=== PATIENT | male | born 1995 | race Caucasian/White ===

== ENCOUNTER 2017-10-12 04:38 | Emergency (ER) | payer OTHER ==
[2017-10-12] MEDS ORDERED: NORMAL SALINE 1000 ML 1,000 ML IV ONE ×3 (05:12→06:15)
--- NOTE | 2017-10-12 05:13 | ER Document Report ---
ED General <MARGARITO KNUTSON - Last Filed: 10/12/17 07:44> - General TRAVEL OUTSIDE OF THE [place] IN LAST 30 DAYS: No <ANTONINO ESPOSITO - Last Filed: 10/12/17 08:39> <TAMI GRIER - Last Filed: 10/12/17 15:08> - General Chief Complaint: High Blood Sugar Stated Complaint: VOMITING/BLOOD SUGAR ISSUES Time Seen by Provider: 10/12/17 05:07 Notes: Patient is a 22-year-old male type I diabetic that comes emergency department for chief complaint of persistent vomiting for the past 10 hours. Patient has an insulin pump, he states he thought it was working, they did recently change location yesterday to his left thigh. He initially thought he got food poisoning from lunch yesterday but he has had no diarrhea, no fever, no other reported symptoms other than vomiting. Blood sugar reading high initially. No hemoptysis. Smokes and drinks socially. No recreational drugs. Only other reported past medical history is hypertension, takes lisinopril. (ANTONINO ESPOSITO) - Related Data Allergies/Adverse Reactions: penicillin V [Penicillin V] Allergy (Verified 04/14/12 09:17) Past Medical History - General Information source: Patient, Relative - father - Social History Smoking Status: Current Some Day Smoker Frequency of alcohol use: Occasional Drug Abuse: None Lives with: Family Family History: Reviewed & Not Pertinent - Past Medical History Cardiac Medical History: Reports: Hx Hypertension Endocrine Medical History: Reports: Hx Diabetes Mellitus Type 1 Past Surgical History: Reports: Hx Testicular Surgery - Immunizations Hx Diphtheria, Pertussis, Tetanus Vaccination: Yes <ANTONINO ESPOSITO - Last Filed: 10/12/17 08:39> Review of Systems - Review of Systems Constitutional: See HPI EENT: No symptoms reported Cardiovascular: No symptoms reported Respiratory: No symptoms reported Gastrointestinal: See HPI Genitourinary: No symptoms reported Male Genitourinary: No symptoms reported Musculoskeletal: No symptoms reported Skin: No symptoms reported Hematologic/Lymphatic: No symptoms reported Neurological/Psychological: No symptoms reported <ANTONINO ESPOSITO - Last Filed: 10/12/17 08:39> Physical Exam <MARGARITO KNUTSON - Last Filed: 10/12/17 07:44> <ANTONINO ESPOSIOT - Last Filed: 10/12/17 08:39> <TAMI GRIER - Last Filed: 10/12/17 15:08> - Vital signs Vitals: Temp Pulse Resp BP Pulse Ox 97.4 F 133 H 30 H 127/71 H 100 10/12/17 04:45 10/12/17 04:45 10/12/17 04:45 10/12/17 04:45 10/12/17 04:45 - Notes Notes: GENERAL: Lethargic, pale HEAD: Normocephalic, atraumatic. EYES: Pupils equal, round, and reactive to light. Extraocular movements intact. ENT: Oral mucosa parched with parched tongue NECK: Full range of motion. Supple. Trachea midline. LUNGS: Tachypnea but clear to auscultation. HEART: Tachycardia with no murmur. ABDOMEN: Soft, non-tender. Non-distended. Bowel sounds present in all 4 quadrants. EXTREMITIES: Moves all 4 extremities spontaneously. No edema, normal radial and dorsalis pedis pulses bilaterally. No cyanosis. BACK: no cervical, thoracic, lumbar midline tenderness. No saddle anesthesia, normal distal neurovascular exam. NEUROLOGICAL: Alert and oriented x3. Normal speech. [cranial nerves II through XII grossly intact]. SKIN: Pale. (ANTONINO ESPOSITO) Course - Laboratory Result Diagrams: 10/12/17 05:10 10/12/17 06:45 <MARGARITO KNUTSON - Last Filed: 10/12/17 07:44> - Laboratory Result Diagrams: 10/12/17 05:10 10/12/17 06:45 <ANTONINO ESPOSITO - Last Filed: 10/12/17 08:39> - Laboratory Result Diagrams: 10/12/17 13:08 10/12/17 13:53 <TAMI GRIER - Last Filed: 10/12/17 15:08> - Re-evaluation Re-evalutation: 10/12/17 06:54 Patient was initially seen by the physician assistant oceanographer, Antonino Esposito. He told the patient appeared to be in DKA and clinically does not look well. I did evaluate the patient and looked at the initial EKG which showed signs concerning for hyperkalemia. I therefore ordered calcium gluconate which was given. His QRS has widened. Patient's blood sugar did come back at over 900 and his potassium was 8.5. Patient has been given 2 A of bicarb and start a bicarb drip. Also given insulin bolus of 10 units due to the severe hyperkalemia and is started on insulin drip for CK. Patient received 3 L of IV fluids at this time will be tapped on the bicarb drip. We are rechecking a second chemistry panel now. Patient does have a large leukocytosis. We spoke with the lab and there is no evidence of blast crisis or blast cells. We called our php architect and I have not spoke with Dr. Odonnell request patient be transferred. She said that the white blood cell count is too high for her to be able to manage here and therefore she requested transfer. Patient is somnolent but awake and oriented. His blood pressure is normal is not tachycardic currently. Once we get a repeat chemistry panel pack we will call for transfer. 10/12/17 07:15 Repeat EKG shows normalization of the patient's QRS duration and his peak T waves have improved significantly. 10/12/17 07:44 Patient's potassium is downtrending. QRS is remaining marrow. Patient is clinically looking much much improved. He is now fully awake and alert and is answering questions appropriately and is much more interactive on exam. I did inform the patient and his mother that her condition from our specialist is to transfer. Patient is followed by an medical billing coordinator in [facility] and therefore will call them first. We will keep a close on the patient's blood sugar. Patient's blood sugar gets down to around [address] him on D5 half-normal maintenance IV fluids. (MARGARITO KNUTSON) On initial evaluation patient is tachycardic, pale, has kussmaul respirations, he is lying panting with his eyes closed but he still responds appropriately, is oriented, does not have altered mental status. Suspect patient has severe DKA. 2 large peripheral IVs were started immediately, giving patient 2 L saline fluid bolus, will start preparing insulin drip. Patient will be closely reevaluated. Patient reevaluated, tachycardia improving, patient's coloration improving although he is not otherwise changed. 10/12/17 05:32 EKG showing sinus tachycardia at a rate of 111, very peaked T waves, QT prolongation. Very concerning for severe hyperkalemia. Dr. Knutson already placed calcium gluconate order, insulin drip is being hung. Labs still pending. 10/12/17 05:54 PH 6.9, severe metabolic acidosis. Giving amp of bicarbonate and starting bicarbonate drip. Patient is still oriented and responsive although still very ill appearing. 10/12/17 06:15 Potassium of 8.5, which she was creatinine of 2.95, anion gap not recordable, glucose 916. Discussed with Dr. Knutson, recommends 10 unit IV insulin bolus and a second amp of bicarbonate. Giving patient his third fluid bolus. Dr. Knutson has evaluated the patient at bedside. 10/12/17 06:[address] Odonnell, hematology environmental engineering manager, she states she is uncomfortable with patient being managed at this facility because of his extremely high white blood cell count and possible underlying pathology possibilities. She recommends transfer. Discussed results with mother, patient reevaluated bedside, he does appear slightly improved from prior, monitoring shows significant improvement of QT interval. EKG repeated and shows significant improvement with resolution of QT prolongation. Spoke with Dr. Osorio, hospitalist at [facility], he accepts patient for transfer, request the patient have an immediate BMP redrawn now along with a repeat CBC and that he be called with the results of the potassium when this has resulted again. Introduced to Dr. Grier at bedside. Dr. Grier will be calling back with the potassium result pending management at that time. I answered all family's questions at this time. They state agreement with transfer and plan. Patient is very much improved at this time, sitting up, talkative, his color is improved , his tachycardia has resolved. (ATNONINO ESPOSITO) 10/12/17 15:08 Patient's mental status improved as well as electrolytes while in the emergency department. Patient was transferred to outside hospital for higher level of care. I met with patient prior to discharge stable for transfer at this time ( CHERRIE,TAMI Quinones) - Vital Signs Vital signs: Temp Pulse Resp BP Pulse Ox 98.1 F 133 H 18 120/73 99 10/12/17 15:04 10/12/17 04:45 10/12/17 14:45 10/12/17 14:31 10/12/17 14:45 - Laboratory Laboratory results interpreted by me: 10/12/17 10/12/17 10/12/17 05:10 05:10 05:10 WBC 62.1 H* Hct 52.9 H MCV 98 H MCHC 31.1 L Plt Count 527 H Seg Neuts % (Manual) 82 H Band Neutrophils % Lymphocytes % (Manual) 4 L Metamyelocytes % 1 H Myelocytes % 2 H Abs Neuts (Manual) 55.9 H Abs Lymphs (Manual) Abs Monocytes (Manual) 3.7 H VBG pH 6.90 L* VBG pCO2 20.4 L VBG HCO3 3.9 L Sodium 132.4 L Potassium 8.5 H* Chloride 88 L Carbon Dioxide < 5 L* Anion Gap BUN 30 H Creatinine 2.95 H Est GFR ( Amer) 32 L Est GFR (Non-Af Amer) 26 L Glucose 916 H* POC Glucose Calcium Magnesium Total Bilirubin Direct Bilirubin 0.7 H Total Protein 8.5 H Albumin 5.8 H Free T3 pg/mL Urine Protein Urine Glucose (UA) Urine Ketones Urine Blood 10/12/17 10/12/17 10/12/17 05:10 06:45 06:45 WBC Hct MCV MCHC Plt Count Seg Neuts % (Manual) Band Neutrophils % Lymphocytes % (Manual) Metamyelocytes % Myelocytes % Abs Neuts (Manual) Abs Lymphs (Manual) Abs Monocytes (Manual) VBG pH VBG pCO2 VBG HCO3 Sodium 133.6 L Potassium 7.6 H* Chloride 97 L Carbon Dioxide 7 L* Anion Gap 30 H BUN 33 H Creatinine 2.37 H Est GFR ( Amer) 41 L Est GFR (Non-Af Amer) 34 L Glucose 746 H* POC Glucose > 550 H* Calcium 8.3 L Magnesium Total Bilirubin Direct Bilirubin Total Protein Albumin Free T3 pg/mL 2.76 L Urine Protein Urine Glucose (UA) Urine Ketones Urine Blood 10/12/17 10/12/17 10/12/17 07:25 08:02 08:15 WBC Hct MCV MCHC Plt Count Seg Neuts % (Manual) Band Neutrophils % Lymphocytes % (Manual) Metamyelocytes % Myelocytes % Abs Neuts (Manual) Abs Lymphs (Manual) Abs Monocytes (Manual) VBG pH VBG pCO2 VBG HCO3 Sodium 136.3 L Potassium Chloride Carbon Dioxide 10 L* Anion Gap 26 H BUN 33 H Creatinine 2.17 H Est GFR ( Amer) 45 L Est GFR (Non-Af Amer) 38 L Glucose 634 H* POC Glucose > 550 H* Calcium Magnesium Total Bilirubin Direct Bilirubin Total Protein Albumin Free T3 pg/mL Urine Protein 100 H Urine Glucose (UA) >=500 H Urine Ketones 80 H Urine Blood MODERATE H 10/12/17 10/12/17 10/12/17 08:15 08:15 09:40 WBC 51.8 H* Hct MCV MCHC Plt Count Seg Neuts % (Manual) Band Neutrophils % 2 L Lymphocytes % (Manual) 12 L Metamyelocytes % Myelocytes % 1 H Abs Neuts (Manual) 41.4 H Abs Lymphs (Manual) 6.7 H Abs Monocytes (Manual) 3.6 H VBG pH VBG pCO2 VBG HCO3 Sodium Potassium Chloride Carbon Dioxide Anion Gap BUN Creatinine Est GFR ( Amer) Est GFR (Non-Af Amer) Glucose POC Glucose > 550 H* Calcium Magnesium 2.4 H Total Bilirubin Direct Bilirubin Total Protein Albumin Free T3 pg/mL Urine Protein Urine Glucose (UA) Urine Ketones Urine Blood 10/12/17 10/12/17 10/12/17 11:10 13:07 13:08 WBC 42.5 H* Hct MCV MCHC Plt Count Seg Neuts % (Manual) Band Neutrophils % 6 H Lymphocytes % (Manual) 6 L Metamyelocytes % 2 H Myelocytes % Abs Neuts (Manual) 36.6 H Abs Lymphs (Manual) Abs Monocytes (Manual) 3.4 H VBG pH VBG pCO2 VBG HCO3 Sodium Potassium Chloride Carbon Dioxide Anion Gap BUN Creatinine Est GFR ( Amer) Est GFR (Non-Af Amer) Glucose POC Glucose 465 H* 360 H Calcium Magnesium Total Bilirubin Direct Bilirubin Total Protein Albumin Free T3 pg/mL Urine Protein Urine Glucose (UA) Urine Ketones Urine Blood 10/12/17 13:53 WBC Hct MCV MCHC Plt Count Seg Neuts % (Manual) Band Neutrophils % Lymphocytes % (Manual) Metamyelocytes % Myelocytes % Abs Neuts (Manual) Abs Lymphs (Manual) Abs Monocytes (Manual) VBG pH VBG pCO2 VBG HCO3 Sodium Potassium Chloride Carbon Dioxide 20 L D Anion Gap BUN 30 H Creatinine 1.39 H Est GFR ( Amer) Est GFR (Non-Af Amer) Glucose 339 H POC Glucose Calcium Magnesium Total Bilirubin 1.4 H Direct Bilirubin 0.5 H Total Protein Albumin Free T3 pg/mL Urine Protein Urine Glucose (UA) Urine Ketones Urine Blood Critical Care Note <MARGARITO KNUTSON - Last Filed: 10/12/17 07:44> - Critical Care Note Total time excluding time spent on procedures (mins): 60 - DKA, hyperkalemia, acute renal failure <ANTONINO ESPOSITO - Last Filed: 10/12/17 08:39> <TAMI GRIER - Last Filed: 10/12/17 15:08> - Critical Care Note Comments: Please allow 60 minutes of critical care time for evaluation, management, transfer patient with severe diabetic ketoacidosis, acute renal failure, hyperkalemia, marked leukocytosis. Interventions for severe hyperkalemia with EKG changes, metabolic acidosis, and hyperglycemia. Multiple re-evaluations and extended time spent both at bedside and in discussion with family along with discussion with hematology and tertiary care. (ANTONINO ESPOSITO) Discharge <MARGARITO KNUTSON - Last Filed: 10/12/17 07:44> <ANTONINO ESPOSITO - Last Filed: 10/12/17 08:39> <TAMI GRIER - Last Filed: 10/12/17 15:08> - Discharge Clinical Impression: Hyperkalemia DKA (diabetic ketoacidoses) Qualifiers: Diabetes mellitus type: type 1 Diabetes mellitus complication detail: without coma Qualified Code(s): E10.10 - Type 1 diabetes mellitus with ketoacidosis without coma Acute renal failure Qualifiers: Acute renal failure type: unspecified Qualified Code(s): N17.9 - Acute kidney failure, unspecified Leukocytosis Qualifiers: Leukocytosis type: unspecified Qualified Code(s): D72.829 - Elevated white blood cell count, unspecified Condition: Serious Disposition: [facility] Referrals: JACE JIANG MD [NO LOCAL MD] - Follow up as needed
[2017-10-12] MEDS ORDERED: INSULIN REG, HUMAN 100 UNIT/ML 3 ML VIAL (PYX) ONE ×2 (05:20→05:38)
[2017-10-12] MEDS ORDERED: CALCIUM GLUCONATE 1000 MG/10 ML INJ IV ONE ×2 (05:26→05:28)
[2017-10-12] MEDS ORDERED: NORMAL SALINE 100 ML with INSULIN REGULAR, HUMAN 100 UNIT IV PRN ×4 (05:27→05:30)
[2017-10-12 05:31] LABS: VENOUS BLOOD BASE EXCESS -28.3 mmol/L; VENOUS BLOOD HCO3 3.9 mmol/L (20-32); VENOUS BLOOD PCO2 20.4 mmHg (35-63)
[2017-10-12 05:36] LABS: VENOUS BLOOD PH 6.9 (7.30-7.42)
[2017-10-12 05:37] LABS: HEMATOCRIT 52.9 % (37.9-51.0); HEMOGLOBIN 16.4 g/dL (13.5-17.0); MEAN CORPUSCULAR HEMOGLOBIN 30.5 pg (27.0-33.4); MEAN CORPUSCULAR HGB CONC 31.1 g/dL (32.0-36.0); MEAN CORPUSCULAR VOLUME 98 fl (80-97); PLATELET COUNT 527 10^3/uL (150-450); RED BLOOD COUNT 5.38 10^6/uL (4.35-5.55)
[2017-10-12] MEDS ORDERED: SODIUM BICARBONATE 8.4% INJ 50 MEQ/50 ML DISP.SYRIN IV ONE ×2 (05:38→06:07)
[2017-10-12] MEDS ORDERED: SODIUM BICARBONATE 8.4% INJ 50 MEQ/50 ML DISP.SYRIN ONE (05:39)
--- NOTE | 2017-10-12 05:45 | RADIOLOGY REPORT (SQ) ---
EXAM DESCRIPTION: XR CHEST 1 VIEW COMPLETED DATE/TME: 10/12/2017 05:11 CLINICAL HISTORY: Persistent vomiting, retching COMPARISON: 04/14/2012 FINDINGS: Single frontal view of the chest. Leads overlie the chest. The cardiomediastinal silhouette has normal size and contour. No consolidation, pneumothorax, or pleural effusion. No displaced rib fractures identified. Upper abdominal soft tissues are unremarkable. IMPRESSION: 1. No acute pulmonary process identified.
[2017-10-12 05:46] LABS: ALANINE AMINOTRANSFERASE 36 U/L (21-72); ALBUMIN 5.8 g/dL (3.5-5.0); ALKALINE PHOSPHATASE 95 U/L (38-126); ASPARTATE AMINO TRANSFERASE 38 U/L (17-59); BILIRUBIN,DIRECT 0.7 mg/dL (0.0-0.4); BILIRUBIN,TOTAL 0.8 mg/dL (0.2-1.3); BLOOD UREA NITROGEN 30 mg/dL (7-20); CHLORIDE 88 mmol/L (98-107); LIPASE 52.2 U/L (23-300); SODIUM 132.4 mmol/L (137-145); TOTAL PROTEIN 8.5 g/dL (6.3-8.2)
[2017-10-12 06:03] LABS: CARBON DIOXIDE < 5 mmol/L (22-30); GLUCOSE 916 mg/dL (75-110); POTASSIUM 8.5 mmol/L (3.6-5.0)
[2017-10-12] MEDS: DEXTROSE 5%-WATER 1000 ML 1,000 ML with SODIUM BICARBONATE 150 MEQ IV PRN ×4 (06:05→13:29)
[2017-10-12] MEDS ORDERED: INSULIN REG, HUMAN 100 UNIT/ML 3 ML VIAL (PYX) IV ONE (06:07)
[2017-10-12 06:22] LABS: ABSOLUTE LYMPHOCYTES# (MANUAL) 2.5 10^3/uL (0.5-4.7); ABSOLUTE MONOCYTES # (MANUAL) 3.7 10^3/uL (0.1-1.4); ABSOLUTE NEUTROPHILS# (MANUAL) 55.9 10^3/uL (1.7-8.2); BAND NEUTROPHILS % (MANUAL) 5 % (3-5); BASOPHILS % (MANUAL) 0 % (0-2); EOSINOPHILS % (MANUAL) 0 % (0-6); LYMPHOCYTES % (MANUAL) 4 % (13-45); METAMYELOCYTES % (MANUAL) 1 % (0); MONOCYTES % (MANUAL) 6 % (3-13); MYELOCYTES % (MANUAL) 2 % (0); PLATELET COMMENT ADEQUATE; RBC MORPHOLOGY COMMENT NORMO-CYTIC/CHROMIC; SEGMENTED NEUTROPHILS % (MAN) 82 % (42-78); TOTAL CELLS COUNTED 100
[2017-10-12 06:23] LABS: WHITE BLOOD COUNT 62.1 10^3/uL (4.0-10.5)
[2017-10-12 07:18] LABS: BLOOD UREA NITROGEN 33 mg/dL (7-20); CALCIUM 8.3 mg/dL (8.4-10.2)
[2017-10-12 07:24] LABS: CHLORIDE 97 mmol/L (98-107); SODIUM 133.6 mmol/L (137-145)
[2017-10-12 07:27] LABS: ANION GAP 30 (5-19)
[2017-10-12 07:35] LABS: GLUCOSE 746 mg/dL (75-110); POTASSIUM 7.6 mmol/L (3.6-5.0)
[2017-10-12 07:36] LABS: CARBON DIOXIDE 7 mmol/L (22-30)
[2017-10-12 08:06] LABS: APPEARANCE,URINE SLIGHTLY-CLOUDY; BILIRUBIN,URINE NEGATIVE (NEGATIVE); COLOR,URINE YELLOW; GLUCOSE, URINE >=500 mg/dL (NEGATIVE); KETONES,URINE 80 mg/dL (NEGATIVE); LEUKOCYTE ESTERASE,URINE NEGATIVE (NEGATIVE); NITRITE,URINE NEGATIVE (NEGATIVE); PROTEIN,URINE 100 mg/dL (NEGATIVE); URINE SPECIFIC GRAVITY 1.017; UROBILINOGEN,URINE NEGATIVE mg/dL (<2.0)
[2017-10-12 08:43] LABS: HEMATOCRIT 44.2 % (37.9-51.0); HEMOGLOBIN 14.5 g/dL (13.5-17.0); MEAN CORPUSCULAR HEMOGLOBIN 30.5 pg (27.0-33.4); MEAN CORPUSCULAR HGB CONC 32.9 g/dL (32.0-36.0); PLATELET COUNT 360 10^3/uL (150-450); RED BLOOD COUNT 4.77 10^6/uL (4.35-5.55); RED CELL DISTRIBUTION WIDTH 12.3 % (11.5-14.0)
[2017-10-12 08:44] LABS: FREE T3 2.76 pg/mL (2.77-5.27); FREE T4 (FREE THYROXINE) 1.87 ng/dL (0.78-2.19)
[2017-10-12 08:58] LABS: THYROID STIMULATING HORMONE 2.54 uIU/mL (0.47-4.68)
[2017-10-12 09:01] LABS: BLOOD UREA NITROGEN 33 mg/dL (7-20); CALCIUM 8.6 mg/dL (8.4-10.2)
[2017-10-12 09:07] LABS: CHLORIDE 100 mmol/L (98-107); SODIUM 136.3 mmol/L (137-145)
[2017-10-12 09:14] LABS: WHITE BLOOD COUNT 51.8 10^3/uL (4.0-10.5)
[2017-10-12 09:15] LABS: MEAN CORPUSCULAR VOLUME 93 fl (80-97)
[2017-10-12 09:16] LABS: ABSOLUTE LYMPHOCYTES# (MANUAL) 6.7 10^3/uL (0.5-4.7); ABSOLUTE MONOCYTES # (MANUAL) 3.6 10^3/uL (0.1-1.4); ABSOLUTE NEUTROPHILS# (MANUAL) 41.4 10^3/uL (1.7-8.2); BAND NEUTROPHILS % (MANUAL) 2 % (3-5); BASOPHILS % (MANUAL) 0 % (0-2); EOSINOPHILS % (MANUAL) 0 % (0-6); LYMPHOCYTES % (MANUAL) 12 % (13-45); MONOCYTES % (MANUAL) 7 % (3-13); MYELOCYTES % (MANUAL) 1 % (0); SEGMENTED NEUTROPHILS % (MAN) 77 % (42-78); TOTAL CELLS COUNTED 100
[2017-10-12 09:17] LABS: PLATELET COMMENT ADEQUATE; POLYCHROMASIA SLIGHT; TOXIC GRANULATION SLIGHT
[2017-10-12 09:30] LABS: ANION GAP 26 (5-19); CARBON DIOXIDE 10 mmol/L (22-30); GLUCOSE 634 mg/dL (75-110)
[2017-10-12 12:02] LABS: PHOSPHORUS 3.9 mg/dL (2.5-4.5)
[2017-10-12 13:31] LABS: HEMATOCRIT 42.4 % (37.9-51.0); HEMOGLOBIN 14.8 g/dL (13.5-17.0); MEAN CORPUSCULAR HEMOGLOBIN 30.8 pg (27.0-33.4); MEAN CORPUSCULAR HGB CONC 34.9 g/dL (32.0-36.0); PLATELET COUNT 362 10^3/uL (150-450); RED BLOOD COUNT 4.79 10^6/uL (4.35-5.55); RED CELL DISTRIBUTION WIDTH 12.2 % (11.5-14.0)
[2017-10-12 13:35] LABS: MEAN CORPUSCULAR VOLUME 89 fl (80-97); WHITE BLOOD COUNT 42.5 10^3/uL (4.0-10.5)
[2017-10-12 13:58] LABS: ABSOLUTE LYMPHOCYTES# (MANUAL) 2.6 10^3/uL (0.5-4.7); ABSOLUTE MONOCYTES # (MANUAL) 3.4 10^3/uL (0.1-1.4); ABSOLUTE NEUTROPHILS# (MANUAL) 36.6 10^3/uL (1.7-8.2); BAND NEUTROPHILS % (MANUAL) 6 % (3-5); BASOPHILS % (MANUAL) 0 % (0-2); EOSINOPHILS % (MANUAL) 0 % (0-6); HYPOCHROMASIA SLIGHT; LYMPHOCYTES % (MANUAL) 6 % (13-45); METAMYELOCYTES % (MANUAL) 2 % (0); MONOCYTES % (MANUAL) 8 % (3-13); PLATELET COMMENT ADEQUATE; POLYCHROMASIA SLIGHT; SEGMENTED NEUTROPHILS % (MAN) 78 % (42-78); TOTAL CELLS COUNTED 100; TOXIC GRANULATION SLIGHT; TOXIC VACUOLATION PRESENT
[2017-10-12 14:10] LABS: PATH REVIEW PATHOLOGIST REVIEWED
[2017-10-12 14:28] LABS: ALANINE AMINOTRANSFERASE 33 U/L (21-72); ALBUMIN 4.6 g/dL (3.5-5.0); ALKALINE PHOSPHATASE 66 U/L (38-126); ANION GAP 19 (5-19); ASPARTATE AMINO TRANSFERASE 43 U/L (17-59); BILIRUBIN,DIRECT 0.5 mg/dL (0.0-0.4); BILIRUBIN,TOTAL 1.4 mg/dL (0.2-1.3); BLOOD UREA NITROGEN 30 mg/dL (7-20); CALCIUM 9.4 mg/dL (8.4-10.2); CHLORIDE 103 mmol/L (98-107); GLUCOSE 339 mg/dL (75-110); POTASSIUM 4.3 mmol/L (3.6-5.0); SODIUM 142.3 mmol/L (137-145); TOTAL PROTEIN 7.3 g/dL (6.3-8.2)
[2017-10-12 14:47] LABS: CARBON DIOXIDE 20 mmol/L (22-30)
[2017-10-12 15:05] VITALS: BP 120/73
--- NOTE | 2017-10-13 07:41 | EKG REPORT ---
SEVERITY:- ABNORMAL ECG - SINUS OR ECTOPIC ATRIAL TACHYCARDIA NONSPECIFIC IVCD WITH LAD : Confirmed by: Alejandra Segovia MD 13-Oct-2017 07:40:11
--- NOTE | 2017-10-13 07:41 | EKG REPORT ---
SEVERITY:- OTHERWISE NORMAL ECG - SINUS TACHYCARDIA : Confirmed by: Alejandra Segovia MD 13-Oct-2017 07:40:02
== END 2017-10-12 15:35 | disposition short-term general hospital (02) ==
LOC: ER 04:38
DX: E10.10 Type 1 diabetes mellitus with ketoacidosis without coma (principal); N17.9 Acute kidney failure, unspecified; D72.829 Elevated white blood cell count, unspecified; E87.5 Hyperkalemia; R11.10 Vomiting, unspecified; R53.83 Other fatigue; R23.1 Pallor; Z79.4 Long term (current) use of insulin; F17.200 Nicotine dependence, unspecified, uncomplicated; I10 Essential (primary) hypertension
CPT/HCPCS: 93005; 99291; 96361; 96374; 36415; 87040; 84439; 82962; 83690; 83735; 84100; 84443; 85025; 80048; 80053; 81001; 84481; 82803; 71045; 93010; J0610; J1815 ×2; J3490; J7060; J7030